=== PATIENT | male | born 1980 | race Caucasian/White ===

== ENCOUNTER 2022-04-23 22:03 | Emergency (ER) | payer SELFPAY ==
[~2022-04-23] VITALS: Ht 175.3 cm; Wt 91.0 kg
[2022-04-23 22:06] VITALS: BP 124/69
[2022-04-23] MEDS ORDERED: FLUORESCEIN SODIUM 1MG/STRIP BOTHEYE ONE (23:30)
[2022-04-23] MEDS ORDERED: TETRACAINE 0.5% OPHTH DROPS 4ML BOTHEYE ONE (23:30)
[2022-04-23] MEDS ORDERED: TETANUS, DIPHTHERIA, PERTUSSIS VAC/PF 0.5ML (>10YR OLD) IM ONE (23:30)
[2022-04-23] MEDS ORDERED: ACETAMINOPHEN 325MG TABLET PO ONE (23:30)
[2022-04-23] MEDS ORDERED: BACITRACIN ZINC OINT UDPKT TOP ONE (23:30)
== END 2022-04-24 01:30 | disposition left against medical advice (07) ==
LOC: ER 22:03
DX: S01.81XA Laceration without foreign body of other part of head, initial encounter (principal); T20.10XA Burn of first degree of head, face, and neck, unspecified site, initial encounter; X08.8XXA Exposure to other specified smoke, fire and flames, initial encounter; W26.8XXA Contact with other sharp object(s), not elsewhere classified, initial encounter; Y93.89 Activity, other specified; Y92.89 Other specified places as the place of occurrence of the external cause; Y99.8 Other external cause status
CPT/HCPCS: 12011; 16000; 90471; 90715; 99284